=== PATIENT | male | born 1955 | race Caucasian/White ===

== ENCOUNTER 2023-06-04 09:37 | Day surgery (SDC) | payer MEDICARE ==
[~2023-06-04] VITALS: Ht 175.3 cm; Wt 35.0 kg
[2023-06-04] MEDS ORDERED: BASAGLAR K100 UNIT/3 (10:15)
[2023-06-04] MEDS ORDERED: ALLOPURINOL100 M1 PO (10:15)
[2023-06-04] MEDS ORDERED: AMLODIPINE BESY10 MG PO (10:16)
[2023-06-04] MEDS ORDERED: TRULICITY1.5 MG/0.1 (10:16)
[2023-06-04] MEDS ORDERED: LISI20 PO (10:18)
[2023-06-04] MEDS ORDERED: SYNTHROID25 M12 PO (10:18)
[2023-06-04] MEDS ORDERED: ROSUVASTATIN CA40 MG PO (10:18)
[2023-06-04] MEDS ORDERED: FISH OIL 1,2001 EAC7 PO (10:19)
[2023-06-04] MEDS ORDERED: VITAMIN D5000 UNIT PO (10:20)
--- NOTE | 2023-06-04 11:49 | NUR ---
06/04/23 1149 Leigh Ford PT UPDATED REGARDING THE DELAY OF THE PREVIOUS CASE GOING OVER SCHEDULED TIME. PT HAS NO NEEDS AT THIS TIME. CALL LIGHT IN REACH. EXTRA WARM BLANKET PROVIDED.
[2023-06-04 13:21] VITALS: BP 146/87
== END 2023-06-04 13:18 | disposition home or self-care (01) ==
LOC: ORSCSDS 09:37
PROVIDERS: Orthopaedic Surgery
PROC: 0LN70ZZ Release Right Hand Tendon, Open Approach (ICD-10-PCS; principal; 2023-06-04 11:15)
DX: M65.331 Trigger finger, right middle finger (principal); I12.9 Hypertensive chronic kidney disease with stage 1 through stage 4 chronic kidney disease, or unspecified chronic kidney disease; E11.22 Type 2 diabetes mellitus with diabetic chronic kidney disease; N18.32 Chronic kidney disease, stage 3b; E11.40 Type 2 diabetes mellitus with diabetic neuropathy, unspecified; E03.9 Hypothyroidism, unspecified; Z87.891 Personal history of nicotine dependence; E78.5 Hyperlipidemia, unspecified; Z79.4 Long term (current) use of insulin; Z79.899 Other long term (current) drug therapy; E66.9 Obesity, unspecified; Z68.35 Body mass index [BMI] 35.0-35.9, adult
CPT/HCPCS: 82947; J0690; J2001; J2704; J3010; J7120

== ENCOUNTER → 2024-10-15 | Outpatient (CLI) | payer MEDICARE ==
[~2024-10-15] MED LIST: ALLOPURINOL100 M1 PO; AMLODIPINE BESY10 MG PO; BASAGLAR K100 UNIT/3; FISH OIL 1,2001 EAC7 PO; LISI20 PO; ROSUVASTATIN CA40 MG PO; SYNTHROID25 M12 PO; TRULICITY1.5 MG/0.1; VITAMIN D5000 UNIT PO
[2024-10-15 14:18] LABS: BASOPHILS ABSOLUTE AUTO 0.04 K/mm3 (0.00-0.23); BASOPHILS PERCENT AUTO 1 % (0-2); EOSINOPHILS ABSOLUTE AUTO 0.24 K/mm3 (0.00-0.68); EOSINOPHILS PERCENT AUTO 3 % (0-6); Hematocrit 41.5 % (37.0-53.0); Hemoglobin 13.5 g/dL (13.5-17.5); IMMATURE GRAN ABSOLUTE AUTO 0.03 K/mm3 (0.00-0.10); IMMATURE GRAN PERCENT AUTO 0 % (0-1); LYMPHOCYTES ABSOLUTE AUTO 1.64 K/mm3 (0.84-5.20); LYMPHOCYTES PERCENT AUTO 19 % (21-46); MONOCYTES ABSOLUTE AUTO 0.48 K/mm3 (0.16-1.47); MONOCYTES PERCENT AUTO 6 % (4-13); Mean Corpuscular HGB 29.2 pg (26.0-34.0); Mean Corpuscular HGB Conc 32.5 g/dL (31.5-36.5); Mean Corpuscular Volume 90 fL (80-100); Mean Platelet Volume 9.7 fL (9.1-12.4); NEUTROPHILS ABSOLUTE AUTO 6.31 K/mm3 (1.96-9.15); NEUTROPHILS PERCENT AUTO 72 % (41-73); Platelet Count 196 K/mm3 (150-400); RDW Coefficient Variation 13.6 % (11.7-14.2); RDW Standard Deviation 44.3 fL (35.1-46.3); Red Blood Cell Count 4.62 M/mm3 (4.30-5.90); White Blood Cell Count 8.74 K/mm3 (4.00-11.30)
[2024-10-15 14:31] LABS: Albumin, Blood 3.7 g/dL (3.4-5.0); Albumin/Globulin Ratio 0.9 (0.8-1.8); Bilirubin, Total 1.1 mg/dL (0.1-1.0); Bun/Creatinine Ratio 11.1 (12.0-20.0); Calcium, Blood 9.8 mg/dL (8.5-10.1); Creatinine, Blood 3.34 mg/dL (0.60-1.20); Potassium, Blood 4.6 mmol/L (3.5-5.5); Total Protein, Blood 7.7 g/dL (6.4-8.2)
== END | disposition home or self-care (01) ==
LOC: LAB SHORT 14:15 → LAB 14:15
PROVIDERS: Physician Assistant Medical
DX: R42 Dizziness and giddiness (principal)
CPT/HCPCS: 80053; 85025